=== PATIENT | female | born 1945 | race Caucasian/White ===

== ENCOUNTER → 2017-09-12 | Day surgery (SDC) | payer MEDICARE, OTHER | LOC: ENDO/OP 07:54 | PROVIDERS: ATTEND Internal Medicine Gastroenterology | DX: K21.9 Gastro-esophageal reflux disease without esophagitis (principal); R05 Cough | CPT/HCPCS: 91034 ==

== ENCOUNTER 2022-07-11 15:19 | Outpatient (CLI) | payer MEDICARE, OTHER ==
[~2022-07-11 15:19] MED LIST: Magnevist 469MG/ML 20 ML VIAL ONE
== END 2022-07-11 15:20 | disposition home or self-care (01) ==
LOC: TBSIIMAG 15:19
PROVIDERS: ATTEND Neurological Surgery
DX: I61.8 Other nontraumatic intracerebral hemorrhage (principal)
CPT/HCPCS: 70553; 82565; A9579